=== PATIENT | female | born 1950 | race Caucasian/White ===

== ENCOUNTER 2017-07-05 10:13 | Emergency (ER) | payer MEDICARE, OTHER ==
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
--- NOTE | 2017-07-05 11:44 | RAD REPORT ---
EXAM DESCRIPTION: RAD - Hand Right 3 View - 07/05/2017 10:51 am CLINICAL HISTORY: Hand pain following trauma, uncertain mechanism of injury COMPARISON: March 25 FINDINGS: No fracture is identified. There is no dislocation or periosteal reaction noted. Patient has mild degenerative changes to the IP joints of the fourth and fifth digit with mild joint space na rrowing degenerative change at the first and third MCP joints. The first carpal- metacarpal joint jake ws mild degenerative change and there is minimal narrowing of the radiocarpal joint space. No erosive or destructive bone process. No air or foreign body. Hand is not substantially different from the [facility] study. IMPRESSION: Degenerative joint changes are present as detailed. No fracture or acute bone finding id entifiable.
== END 2017-07-05 11:52 | disposition home or self-care (01) ==
LOC: ER 10:13
DX: S62.622A Displaced fracture of middle phalanx of right middle finger, initial encounter for closed fracture (principal); W22.8XXA Striking against or struck by other objects, initial encounter; Y93.89 Activity, other specified; Y92.009 Unspecified place in unspecified non-institutional (private) residence as the place of occurrence of the external cause; K21.9 Gastro-esophageal reflux disease without esophagitis
CPT/HCPCS: 99283

== ENCOUNTER 2017-08-12 07:38 | Day surgery (SDC) | payer MEDICARE, OTHER ==
--- NOTE | 2017-08-10 10:58 | RAD REPORT ---
EXAM DESCRIPTION: Kaci Aquino (2 Views)08/10/2017 9:31 am CLINICAL HISTORY: Preop for wrist surgery COMPARISON: January 2017 FINDINGS: The lungs appear clear of acute infiltrate. The heart is normal size IMPRESSION: No acute abnormalities displayed
[2017-08-10 12:27] LABS: Urine Appearance CLEAR; Urine Bilirubin NEGATIVE (NEG); Urine Blood NEGATIVE (NEG); Urine Color YELLOW; Urine Glucose NEGATIVE (NEG); Urine Protein NEGATIVE (NEG); Urine Specific Gravity 1.025 (1.005-1.030); Urine Urobilinogen 0.2 mg/dL (0.2-1.0); Urine pH 6.5 (5.0-7.0)
[2017-08-10 12:30] LABS: Absolute Lymphocytes (CBC) 1.4 K/uL (0.7-4.9); Absolute Monocytes 0.5 K/uL (0.1-1.3); Absolute Neutrophil 3.3 K/uL (1.8-8.0); Basophils % 0.7 % (0-1.3); Eosinophils % 1.5 % (0-4.4); Hematocrit 38.4 % (36.0-45.0); Lymphocytes % 26.6 % (15.3-44.8); MCH 30.9 pg (27.0-35.0); MCV 94.6 fL (80-100); Monocytes % 8.9 % (3.3-12.3); RBC Red Blood Cell Count 4.05 M/uL (3.86-4.86)
[2017-08-10 12:31] LABS: Urine Microscopic Reflex ORDER UMIC
[2017-08-10 13:00] LABS: Urine Bacteria <20 /HPF (<20); Urine Culture Reflex Order NOT NEEDED; Urine RBC <5 /HPF (NONE SEEN)
[2017-08-10 13:01] LABS: Urine Mucus SLIGHT /HPF (NONE SEEN)
--- NOTE | 2017-08-10 14:41 | EKG ---
Test Date: 2017-08-10 Test Time: 09:11:48 President & Ceo: PAMELA MEASUREMENT RESULTS: Intervals: Rate: 53 GA: 132 QRSD: 78 QT: 466 QTc: 437 [place]: P: 47 GA: 132 QRS: 22 T: 27 INTERPRETIVE STATEMENTS: Sinus bradycardia Otherwise normal ECG No previous ECG available for comparison Electronically Signed On 08-10-17 14:39:59 CDT by Bart Mensah
[2017-08-12] MEDS ORDERED: CEFAZOLIN/SWI 1gm 1 GM/10 ML SYR ONE (08:06)
[2017-08-12] MEDS ORDERED: Ringers Lactate 1,000 ML IV ONE (08:06)
[2017-08-12] MEDS ORDERED: MIDAZOLAM HCL 2 MG/2 ML INJ ONE (08:56)
[2017-08-12] MEDS ORDERED: PROPOFOL 200 MG/20 ML VIAL IV ONE (08:56)
[2017-08-12] MEDS ORDERED: FENTANYL CITR 100 MCG/2 ML ONE (08:56)
[2017-08-12] MEDS ORDERED: LIDOCAINE 1% MPF 5 ML VIAL ONE (08:56)
[2017-08-12] MEDS ORDERED: KETOROLAC 30 MG/ML INJ ONE (10:01)
[2017-08-12] MEDS ORDERED: MEPERIDINE HCL 25 MG/0.5 ML ONE ×2 (10:35→10:42)
[2017-08-12] MEDS ORDERED: ONDANSETRON 4 MG/2 ML VIAL ONE (10:37)
[2017-08-12] MEDS ORDERED: HYDROCODONE/APAP 5/325 MG TAB ONE (11:11)
--- NOTE | 2017-08-12 20:59 | OP ---
Surgeon: Wiliam Berry MD [employer] Assistant: Semaj. Preoperative Diagnosis: Right carpal tunnel syndrome. Postoperative Diagnosis: Right carpal tunnel syndrome. Procedure Performed: Right carpal tunnel release. Anesthesia: General. Procedure In Detail: After satisfactory induction of general anesthesia, the right arm was prepped w ith Betadine scrub, Betadine paint, dry sterile drapes placed in the usual manner. The arm was eleva renée, exsanguinated with an Esmarch, tourniquet inflated to 250 mmHg. Hand was placed on a [place] ta ble. A felt-tip marking pen used to outline a palmar incision. The scalpel was used to excise the s kin. Dissection proceeded down. The transverse carpal ligament was divided with a scalpel. The Ant ebrachial fascia was opened with tenotomy scissors. The floor was inspected and no masses. The alexa r branch of the median nerve was identified distally and was intact. Tourniquet was released. Elect rocautery used for hemostasis. Wound closed with 4-0 Prolene vertical mattress and half buried mattr ess simple sutures. Dressed with Xeroform, 2-inch Lily, Kerlix, splint holding the wrist in 10 degr ees of dorsiflexion. The patient tolerated the procedure well and returned to recovery. RAYA/AMY Voice ID: [id number] Report ID: [id number]
== END 2017-08-12 12:05 | disposition home or self-care (01) ==
LOC: OR 07:38
PROVIDERS: ATTEND Specialist
PROC: 01N50ZZ Release Median Nerve, Open Approach (ICD-10-PCS; principal; 2017-08-12 09:00)
DX: G56.01 Carpal tunnel syndrome, right upper limb (principal)
CPT/HCPCS: 36415; 64721; 71046; 85025; 93005; J0690; J2175 ×2; J2250; J2405; J3010; 81003; 81015

== ENCOUNTER 2017-10-03 11:59 | Observation (INO) | payer MEDICARE, OTHER ==
[2017-10-03] MEDS ORDERED: NA CHLORIDE 0.9% 1,000 ML ONE (13:04)
[2017-10-03] MEDS ORDERED: ACETAMINOPHEN 325 MG TABLET ONE (13:04)
[2017-10-03] MEDS ORDERED: CEFTRIAXONE/SWI 1gm 1 GM/10 ML SYR ONE (13:05)
[2017-10-03 13:13] LABS: Absolute Lymphocytes (CBC) 0.4 K/uL (0.7-4.9); Absolute Monocytes 0.3 K/uL (0.1-1.3); Absolute Neutrophil 8.5 K/uL (1.8-8.0); Basophils % 0.3 % (0-1.3); Hematocrit 35.3 % (36.0-45.0); Lymphocytes % 4.1 % (15.3-44.8); MCH 32.5 pg (27.0-35.0); MCV 94.9 fL (80-100); MPV 9.7 fL (7.6-11.3); Monocytes % 3.6 % (3.3-12.3); RBC Red Blood Cell Count 3.72 M/uL (3.86-4.86)
[2017-10-03 13:16] LABS: Protime INR 1.23
[2017-10-03 13:27] LABS: Albumin 3.3 g/dL (3.4-5.0); Bilirubin Direct 0.6 mg/dL (0-0.2); Bilirubin Total 1.6 mg/dL (0.2-1.0); CKMB Creatine Kinase MB 1.4 ng/mL (0.3-3.6); Magnesium 1.8 mg/dL (1.8-2.4); Potassium 3.4 mmol/L (3.5-5.1); Protein, Total 7.2 g/dL (6.4-8.2)
[2017-10-03 14:05] LABS: Urine Blood 1+ (NEG); Urine Glucose NEGATIVE (NEG); Urine Protein 3+ (NEG); Urine Specific Gravity 1.015 (1.005-1.030)
[2017-10-03 14:09] LABS: Blood Morphology Comment NOT SEEN (NOT SEEN); Platelet Estimate ADEQ; Urine White Blood Cell Casts OK
--- NOTE | 2017-10-03 14:54 | EDPHYS ---
Physician Documentation [facility] Name: Annie Tong Age: 66 yrs Sex: Female : 1950 Arrival Date: 10/03/2017 Time: 12:03 Bed 6 Private MD: None, None ED Physician Ji Storm HPI: 10/03 12:58 This 66 yrs old Female presents to ER via Wheelchair with complaints of sloane Chills. 12:58 The patient presents with urinary symptoms, dysuria, frequency, urgency. Onset: The sloane symptoms/episode began/occurred 2 day(s) ago. Modifying factors: The symptoms are alleviated by nothing, the symptoms are aggravated by nothing. Associated signs and symptoms: Pertinent positives: dysuria, fever. Severity of symptoms: At their worst the symptoms were moderate, in the emergency department the symptoms are unchanged. The patient or guardian reports cough, flu symptoms, low-grade fever, myalgias. fever and malaise today. Historical: - Allergies: 12:11 No Known Allergies; aj1 - Home Meds: 12:11 Zantac Oral [Active]; aj1 - PMHx: 12:11 GERD; aj1 - PSHx: 12:11 hand surgery; aj1 - Immunization history:: Flu vaccine is not up to date. - Social history:: Smoking status: Patient/guardian denies using tobacco. - Ebola Screening: : Patient denies travel to an Ebola-affected area in the 21 days before illness onset. - Family history:: not pertinent. ROS: 12:58 Constitutional: Negative for fever, chills, and weight loss, Eyes: Negative for injury, sloane pain, redness, and discharge, ENT: Negative for injury, pain, and discharge, Neck: Negative for injury, pain, and swelling, Cardiovascular: Negative for chest pain, palpitations, and edema, Abdomen/GI: Negative for abdominal pain, nausea, vomiting, diarrhea, and constipation, Back: Negative for injury and pain, MS/Extremity: Negative for injury and deformity, Skin: Negative for injury, rash, and discoloration, Neuro: Negative for headache, weakness, numbness, tingling, and seizure, Psych: Negative for depression, anxiety, suicide ideation, homicidal ideation, and hallucinations, Allergy/Immunology: Negative for hives, rash, and allergies, Endocrine: Negative for neck swelling, polydipsia, polyuria, polyphagia, and marked weight changes, Hematologic/Lymphatic: Negative for swollen nodes, abnormal bleeding, and unusual bruising. 12:58 Cardiovascular: Positive for 12:58 Respiratory: Positive for cough, wheezing, expiratory. 12:58 : Positive for urinary symptoms, urinary frequency. Exam: 13:01 Head/Face: Normocephalic, atraumatic. Eyes: Pupils equal round and reactive to light, sloane extra-ocular motions intact. Lids and lashes normal. Conjunctiva and sclera are non-icteric and not injected. Cornea within normal limits. Periorbital areas with no swelling, redness, or edema. ENT: Nares patent. No nasal discharge, no septal abnormalities noted. Tympanic membranes are normal and external auditory canals are clear. Oropharynx with no redness, swelling, or masses, exudates, or evidence of obstruction, uvula midline. Mucous membranes moist. Neck: Trachea midline, no thyromegaly or masses palpated, and no cervical lymphadenopathy. Supple, full range of motion without nuchal rigidity, or vertebral point tenderness. No Meningismus. Chest/axilla: Normal chest wall appearance and motion. Nontender with no deformity. No lesions are appreciated. Cardiovascular: Regular rate and rhythm with a normal S1 and S2. No gallops, murmurs, or rubs. Normal PMI, no JVD. No pulse deficits. Respiratory: Lungs have equal breath sounds bilaterally, clear to auscultation and percussion. No rales, rhonchi or wheezes noted. No increased work of breathing, no retractions or nasal flaring. Abdomen/GI: Soft, non-tender, with normal bowel sounds. No distension or tympany. No guarding or rebound. No evidence of tenderness throughout. Back: No spinal tenderness. No costovertebral tenderness. Full range of motion. Skin: Warm, dry with normal turgor. Normal color with no rashes, no lesions, and no evidence of cellulitis. MS/ Extremity: Pulses equal, no cyanosis. Neurovascular intact. Full, normal range of motion. Neuro: Awake and alert, GCS 15, oriented to person, place, time, and situation. Cranial nerves II-XII grossly intact. Motor strength 5/5 in all extremities. Sensory grossly intact. Cerebellar exam normal. Normal gait. Psych: Awake, alert, with orientation to person, place and time. Behavior, mood, and affect are within normal limits. 13:01 Constitutional: The patient appears febrile. 13:01 Abdomen/GI: Inspection: abdomen appears normal, Bowel sounds: normal, Palpation: mild abdominal tenderness, in the suprapubic area, Liver: no appreciated palpable abnormalities, Hernia: not appreciated. Vital Signs: 12:11 BP 108 / 82; Pulse 110; Resp 28; Temp 100.3(O); Pulse Ox 97% on R/A; Weight 86.18 kg aj1 (R); Height 5 ft. 7 in. (170.18 cm) (R); Pain 0/10; 13:18 BP 93 / 62; Pulse 87; Resp 22 S; Temp 100.0(O); Pulse Ox 97% on R/A; aa5 13:55 BP 113 / 67; Pulse 82; Resp 22 S; Pulse Ox 95% on R/A; aa5 14:42 BP 104 / 56; Pulse 72; Resp 20 S; Temp 100.4(O); Pulse Ox 92% on R/A; Pain 0/10; aa5 14:42 Pulse Ox 96% on 2 lpm NC; aa5 15:05 Pulse Ox 100% on Nebulizer Mask; aa5 15:24 BP 99 / 59; Pulse 85; Resp 22 S; Pulse Ox 95% on R/A; aa5 15:33 Temp 98.8(O); Pulse Ox 95% on R/A; aa5 15:45 Pulse Ox 93% on R/A; aa5 15:45 Pulse Ox 99% on 2 lpm NC; aa5 16:15 BP 99 / 54; Pulse 85; Resp 20 S; Pulse Ox 99% on 2 lpm NC; Pain 0/10; aa5 12:11 Body Mass Index 29.76 (86.18 kg, 170.18 cm) [facility] MDM: 12:[address] [facility] 13:02 Data reviewed: vital signs, nurses notes, lab test result(s), EKG, radiologic studies. [facility] 10/03 12:57 Order name: Basic Metabolic Panel [facility] 10/03 12:57 Order name: CBC with Diff; Complete Time: 14:47 [facility] 10/03 12:57 Order name: Ckmb; Complete Time: 14:47 [facility] 10/03 12:57 Order name: CPK; Complete Time: 14:47 [facility] 10/03 12:57 Order name: LFT's; Complete Time: 14:47 [facility] 10/03 12:57 Order name: Magnesium; Complete Time: 14:47 [facility] 10/03 12:57 Order name: NT PRO-BNP; Complete Time: 14:47 [facility] 10/03 12:57 Order name: PT-INR; Complete Time: 14:47 [facility] 10/03 12:57 Order name: Ptt, Activated; Complete Time: 14:47 [facility] 10/03 12:57 Order name: Troponin (emerg Dept Use Only); Complete Time: 14:47 [facility] 10/03 12:57 Order name: Urine Culture [facility] 10/03 12:57 Order name: Lipase; Complete Time: 14:47 [facility] 10/03 12:57 Order name: Blood Culture Adult (2) [facility] 10/03 12:57 Order name: Influenza Screen (a \T\ B); Complete Time: 14:47 [facility] 10/03 12:57 Order name: XRAY Chest (1 view) [facility] 10/03 12:57 Order name: EKG; Complete Time: 12:58 [facility] 10/03 12:57 Order name: Cardiac monitoring; Complete Time: 13:06 [facility] 10/03 12:58 Order name: Basic Metabolic Panel; Complete Time: 14:47 EDMS 10/03 13:20 Order name: CBC Smear Scan; Complete Time: 14:47 EDMS 10/03 13:48 Order name: Urine Dipstick--Ancillary (enter results); Complete Time: 14:47 10/03 15:42 Order name: Diet Regular; Complete Time: 15:42 aa5 10/03 12:57 Order name: EKG - Nurse/Tech; Complete Time: 13:17 [facility] 10/03 12:57 Order name: IV Saline Lock; Complete Time: 13:06 [facility] 10/03 12:57 Order name: Labs collected and sent; Complete Time: 13:06 [facility] 10/03 12:57 Order name: O2 Per Protocol; Complete Time: 13:06 [facility] 10/03 12:57 Order name: O2 Sat Monitoring; Complete Time: 13:06 [facility] 10/03 12:57 Order name: Urine Dipstick-Ancillary (obtain specimen); Complete Time: 13:44 [facility] Administered Medications: 13:06 Drug: NS 0.9% 1000 ml Route: IV; Rate: 1 bolus; Site: right antecubital; jl7 13:06 Drug: Tylenol 650 mg Route: PO; jl7 14:00 Follow up: Response: No adverse reaction aa5 14:21 Drug: Rocephin - (cefTRIAXone) 1 grams Route: IVPB; Infused Over: 30 mins; Site: right jl7 antecubital; 14:40 Follow up: Response: No adverse reaction aa5 15:00 Drug: Potassium Effervescent Tablet 25 mEq Route: PO; aa5 15:32 Follow up: Response: No adverse reaction aa5 15:00 Drug: Motrin 600 mg Route: PO; aa5 15:32 Follow up: Response: No adverse reaction; Temperature is decreased aa5 15:00 Drug: Albuterol 2.5 mg Route: Inhalation; aa5 15:00 Drug: AtroVENT Aerosol 0.5 mg Route: Inhalation; aa5 15:10 Drug: NS 0.9% with KCl 20 mEq/L 1000 ml Route: IV; Rate: 125 ml/hr; Site: right aa5 antecubital; 16:20 Follow up: IV Status: Infusion continued upon admission aa5 15:10 Drug: Zithromax 500 mg Route: IVPB; Infused Over: 1 hrs; Site: right antecubital; aa5 15:32 Follow up: Response: No adverse reaction aa5 16:10 Follow up: Response: No adverse reaction; IV Status: Completed infusion aa5 Disposition: 10/03/17 14:53 Hospitalization ordered by Shannan Pisano for Inpatient Admission. Preliminary diagnosis are Fever, unspecified, Pneumonia due to other specified bacteria, Cystitis, Weakness, Hypokalemia. - Bed requested for Telemetry/MedSurg (Inpatient). - Status is Inpatient Admission. aa5 - Condition is Fair. - Problem is new. - Symptoms have improved. UTI on Admission? Yes Signatures: Dispatcher [employer] EDMS Loren Man Angela, RN RN aj1 Ji Storm MD MD cha Calderon, Audri, RN RN aa5 Sami Werner RN RN jl7 Corrections: (The following items were deleted from the chart) 15:56 14:53 Hospitalization Ordered by Shannan Pisano MD for Inpatient Admission. bd Preliminary diagnosis is Fever, unspecified; Pneumonia due to other specified bacteria; Cystitis; Weakness; Hypokalemia. Bed requested for Telemetry/MedSurg (Inpatient). Status is Inpatient Admission. Condition is Fair. Problem is new. Symptoms have improved. UTI on Admission? Yes. [facility] 16:37 15:56 10/03/2017 14:53 Hospitalization Ordered by Shannan Pisano MD for Inpatient aa5 Admission. Preliminary diagnosis is Fever, unspecified; Pneumonia due to other specified bacteria; Cystitis; Weakness; Hypokalemia. Bed requested for Telemetry/MedSurg (Inpatient). Status is Inpatient Admission. Condition is Fair. Problem is new. Symptoms have improved. UTI on Admission? Yes. bd
--- NOTE | 2017-10-03 14:54 | ER ---
Nurse's Notes [facility] Name: Annie Tong Age: 66 yrs Sex: Female : 1950 Arrival Date: 10/03/2017 Time: 12:03 Bed 6 Private MD: None, None Diagnosis: Fever, unspecified;Pneumonia due to other specified bacteria;Cystitis;Weakness;Hypokalemia Presentation: 10/03 12:04 Presenting complaint: Patient states: "I started having chills all of the sudden at aj1 0930 this morning. I just can't get warm. I thought it might be the infection because I had my tooth pulled on the ." Reports fever, dry mouth, chills, vomiting. Denies pain. Transition of care: patient was not received from another setting of care. Onset of symptoms was October 03, 2017 at 09:30. Risk Assessment: Do you want to hurt yourself or someone else? Patient reports no desire to harm self or others. Initial Sepsis Screen: Does the patient meet any 2 criteria? HR > 90 bpm. Does the patient have a suspected source of infection? Yes: Other: recent tooth extraction. Care prior to arrival: None. 12:04 Method Of Arrival: Wheelchair aj1 12:04 Acuity: SERENA 3 aj1 Triage Assessment: 12:11 General: Appears in no apparent distress. uncomfortable, Behavior is cooperative, aj1 anxious, restless. General: Reports chills for 0-12 hours, fever for 0-12 hours. Pain: Denies pain. Neuro: Level of Consciousness is awake, alert, obeys commands, Speech is normal. Cardiovascular: Patient's skin is warm and dry. Respiratory: Reports shortness of breath Airway is patent Respiratory effort is even, unlabored, Respiratory pattern is regular, symmetrical. GI: Pt is actively vomiting bile, Reports nausea, vomiting. : No signs and/or symptoms were reported regarding the genitourinary system. Derm: No signs and/or symptoms reported regarding the dermatologic system. Skin is pink, warm \\T\\ dry. normal. Musculoskeletal: No signs and/or symptoms reported regarding the musculoskeletal system. Circulation, motion, and sensation intact. Historical: - Allergies: 12:11 No Known Allergies; aj1 - Home Meds: 12:11 Zantac Oral [Active]; aj1 - PMHx: 12:11 GERD; aj1 - PSHx: 12:11 hand surgery; aj1 - Immunization history:: Flu vaccine is not up to date. - Social history:: Smoking status: Patient/guardian denies using tobacco. - Ebola Screening: : Patient denies travel to an Ebola-affected area in the 21 days before illness onset. - Family history:: not pertinent. Screenin:50 Abuse screen: Denies threats or abuse. Nutritional screening: No deficits noted. aa5 Tuberculosis screening: No symptoms or risk factors identified. Fall Risk None identified. Assessment: 12:50 General: Appears comfortable, Behavior is calm, cooperative. Pain: Denies pain. Neuro: aa5 Level of Consciousness is awake, alert, obeys commands, Oriented to person, place, time, situation. Cardiovascular: Heart tones S1 S2 present Rhythm is regular. Respiratory: Airway is patent Respiratory effort is even, unlabored, Respiratory pattern is regular, symmetrical, tachypnea mild wheezes auscultated bilaterally. 12:50 GI: Abdomen is round non-distended, Bowel sounds present X 4 quads. Abd is soft and non aa5 tender X 4 quads. Reports nausea, Patient currently denies diarrhea, vomiting. : Reports urgency, urinary frequency, cloudy urine x 1-2 weeks ago Denies burning with urination. EENT: Reports "the dentis pulled all my bottom teeth out about 2 or 3 weeks ago". No signs of infection noted to bottom gums. Derm: Skin is pink, warm \\T\\ dry. Musculoskeletal: Range of motion: intact in all extremities. 13:55 Reassessment: Patient and/or family updated on plan of care and expected duration. Pain aa5 level reassessed. Patient is alert, oriented x 3, equal unlabored respirations, skin warm/dry/pink. Patient states feeling better. 14:42 Reassessment: Patient and/or family updated on plan of care and expected duration. Pain aa5 level reassessed. Patient is alert, oriented x 3, equal unlabored respirations, skin warm/dry/pink. Patient denies pain at this time. Awaiting chest x-ray results . 16:00 Reassessment: Patient and/or family updated on plan of care and expected duration. Pain aa5 level reassessed. Patient is alert, oriented x 3, equal unlabored respirations, skin warm/dry/pink. Patient denies pain at this time. Vital Signs: 12:11 BP 108 / 82; Pulse 110; Resp 28; Temp 100.3(O); Pulse Ox 97% on R/A; Weight 86.18 kg aj1 (R); Height 5 ft. 7 in. (170.18 cm) (R); Pain 0/10; 13:18 BP 93 / 62; Pulse 87; Resp 22 S; Temp 100.0(O); Pulse Ox 97% on R/A; aa5 13:55 BP 113 / 67; Pulse 82; Resp 22 S; Pulse Ox 95% on R/A; aa5 14:42 BP 104 / 56; Pulse 72; Resp 20 S; Temp 100.4(O); Pulse Ox 92% on R/A; Pain 0/10; aa5 14:42 Pulse Ox 96% on 2 lpm NC; aa5 15:05 Pulse Ox 100% on Nebulizer Mask; aa5 15:24 BP 99 / 59; Pulse 85; Resp 22 S; Pulse Ox 95% on R/A; aa5 15:33 Temp 98.8(O); Pulse Ox 95% on R/A; aa5 15:45 Pulse Ox 93% on R/A; aa5 15:45 Pulse Ox 99% on 2 lpm NC; aa5 16:15 BP 99 / 54; Pulse 85; Resp 20 S; Pulse Ox 99% on 2 lpm NC; Pain 0/10; aa5 12:11 Body Mass Index 29.76 (86.18 kg, 170.18 cm) aj ED Course: 12:03 Patient arrived in ED. mr 12:03 None, None is Private Physician. mr 12:09 Triage completed. aj1 12:11 Arm band placed on Patient placed in waiting room, Patient notified of wait time. aj1 12:44 Negra Donaldson, DASHA is Primary Nurse. aa5 12:44 Ji Storm MD is Attending Physician. [facility] 12:50 Patient has correct armband on for positive identification. Placed in gown. Bed in low aa5 position. Call light in reach. Side rails up X2. 13:00 Inserted saline lock: 18 gauge in right antecubital area, using aseptic technique. aa5 Blood collected. 13:00 Initial lab(s) drawn, by me, sent to lab. First set of blood cultures drawn by me. aa5 13:10 Flu and/or RSV swab sent to lab. aa5 13:12 No provider procedures requiring assistance completed. Second set of blood cultures aa5 drawn by me. 14:00 X-ray completed. Portable x-ray completed in exam room. Patient tolerated procedure la2 well. 14:06 XRAY Chest (1 view) In Process Unspecified. EDMS 14:51 Shannan Pisano MD is Hospitalizing Provider. [facility] 16:20 Patient admitted, IV remains in place. aa5 Administered Medications: 13:06 Drug: NS 0.9% 1000 ml Route: IV; Rate: 1 bolus; Site: right antecubital; jl7 13:06 Drug: Tylenol 650 mg Route: PO; jl7 14:00 Follow up: Response: No adverse reaction aa5 14:21 Drug: Rocephin - (cefTRIAXone) 1 grams Route: IVPB; Infused Over: 30 mins; Site: right jl7 antecubital; 14:40 Follow up: Response: No adverse reaction aa5 15:00 Drug: Potassium Effervescent Tablet 25 mEq Route: PO; aa5 15:32 Follow up: Response: No adverse reaction aa5 15:00 Drug: Motrin 600 mg Route: PO; aa5 15:32 Follow up: Response: No adverse reaction; Temperature is decreased aa5 15:00 Drug: Albuterol 2.5 mg Route: Inhalation; aa5 15:00 Drug: AtroVENT Aerosol 0.5 mg Route: Inhalation; aa5 15:10 Drug: NS 0.9% with KCl 20 mEq/L 1000 ml Route: IV; Rate: 125 ml/hr; Site: right aa5 antecubital; 16:20 Follow up: IV Status: Infusion continued upon admission aa5 15:10 Drug: Zithromax 500 mg Route: IVPB; Infused Over: 1 hrs; Site: right antecubital; aa5 15:32 Follow up: Response: No adverse reaction aa5 16:10 Follow up: Response: No adverse reaction; IV Status: Completed infusion aa5 Outcome: 14:53 Decision to Hospitalize by Provider. [place] 16:20 Admitted to [facility] accompanied by tech, via wheelchair, with oxygen, with chart, Report aa5 called to Esequiel Mendoza Jr, RN 16:20 Condition: stable 16:20 Instructed on the need for admit, Demonstrated understanding of instructions. 16:37 Patient left the ED. aa5 Signatures: Dispatcher [employer] EDMS Marian Post, RN RN aj1 Ji Storm MD MD cha Rivera, Maria mr Donaldson, DASHA Omer RN aa5 Sami Werner RN RN jl7 Christine Montalvo Corrections: (The following items were deleted from the chart) 13:20 13:18 Pulse 87bpm; Resp 22bpm; Spontaneous; Pulse Ox 97% RA; Temp 100.0F Oral; aa5 aa5 13:43 13:23 General: Appears comfortable, Behavior is calm, cooperative, aa5 aa5 :46 13:23 Pain: Denies pain. aa5 aa5 13:46 13:23 Neuro: Level of Consciousness is awake, alert, obeys commands, Oriented to aa5 person, place, time, situation, aa5 13:46 13:23 Cardiovascular: Heart tones S1 S2 present Rhythm is regular aa5 aa5 13:46 13:23 Respiratory: Airway is patent Respiratory effort is even, unlabored, Respiratory aa5 pattern is regular, symmetrical, aa5 :46 13:23 General: Appears comfortable, Behavior is calm, cooperative, aa5 aa5 15:25 15:24 BP 99 / 59; Pulse 85bpm; Resp 22bpm; Spontaneous; Pulse Ox 93% RA; aa5 aa5 15:34 15:33 Temp 98.8F Oral; aa5 aa5
[2017-10-03] MEDS ORDERED: IPRATROPIUM BROM 0.5MG/2.5ML ONE (15:00)
[2017-10-03] MEDS ORDERED: IBUPROFEN 200 MG TAB PO ONE (15:00)
[2017-10-03] MEDS ORDERED: POTASSIUM 25 MEQ EFFERV TAB ONE (15:00)
[2017-10-03] MEDS ORDERED: ALBUTEROL 2.5 MG/3 ML NEB SOL ONE (15:00)
[2017-10-03] MEDS ORDERED: IBUPROFEN 400 MG TAB ONE (15:00)
[2017-10-03] MEDS ORDERED: NS KCL 20MEQ 1,000 ML IV ONE (15:01)
[2017-10-03] MEDS ORDERED: AZITHROMYCIN 500 MG/250 ML BAG ONE (15:01)
--- NOTE | 2017-10-03 15:38 | RAD REPORT ---
EXAM DESCRIPTION: Kaci Single View10/03/2017 2:08 pm CLINICAL HISTORY: cough COMPARISON: July 2017 FINDINGS: The lungs appear clear of acute infiltrate. The heart is normal size IMPRESSION: No acute abnormalities displayed
--- NOTE | 2017-10-03 15:56 | P.HP ---
Certification for Inpatient Patient admitted to: Observation With expected LOS: <2 Midnights Patient will require the following post-hospital care: None Practitioner: I am a practitioner with admitting privileges, knowledge of patient current condition, hospital course, and medical plan of care. Services: Services provided to patient in accordance with Admission requirements found in Title 42 Section 412.3 of the Code of Federal Regulations Patient History Date of Service: 10/03/17 Primary Care Provider: OOT Reason for admission: Fever, chillis and weakness History of Present Illness: This is a 66-year-old female with significant past medical history of reflux who presented to the ED complaining of having some fever chills that has been going on for past several days. Patient stated that she has been noticing that she had a low-grade fever at the house and thus decided to come to the ER. Patient also stated that she has been having some increased frequency for urination and painful urination for past couple of days and thus decided to come to the ER for further workup. No other complaints to offer at this time. Patient denies having any chest pain nausea vomiting or any other associated symptoms at this time. In the ER patient was found to have low-grade fever 100.4 and UA which was positive for leuk esterase and thus was admitted to the hospital for UTI. Patient was given fluids in the ER however patient's continued to have low- grade fever and thus it was decided the patient will be admitted to the hospital for observation for 24 hr. Allergies No Known Allergies Allergy (Verified 08/10/17 08:59) Home medications list reviewed: Yes Home Medications: Ranitidine [Zantac] 150 mg PO DAILY 08/10/17 - Past Medical/Surgical History Has patient received pneumonia vaccine in the past: No Diabetic: No -: GERD Past Surgical History: Reviewed- Non-Contributory - Family History Family History: Reviewed- Non-Contributory - Family History Sister History Unknown: Yes -: Cancer Notes: Bone cancer Father History Unknown: Yes -: Heart disease Mother -: Heart disease - Social History Smoking Status: Never smoker Smoking therapy provided: No Patient receptive to therapy: No Alcohol use: No CD- Drugs: No Caffeine use: No Place of Residence: Home Review of Systems General: As per HPI Physical Examination - Physical Exam General: Alert, In no apparent distress HEENT: Atraumatic, PERRLA, Mucous membr. moist/pink, EOMI, Sclerae nonicteric Neck: Supple, 2+ carotid pulse no bruit, No LAD, Without JVD or thyroid abnormality Respiratory: Clear to auscultation bilaterally, Normal air movement Cardiovascular: Regular rate/rhythm, Normal S1 S2 Gastrointestinal: Normal bowel sounds, No tenderness Musculoskeletal: No tenderness Integumentary: No rashes Neurological: Normal speech, Normal strength at 5/5 x4 extr, Normal tone, Normal affect Lymphatics: No axilla or inguinal lymphadenopathy - Studies Laboratory Data (last 24 hrs) 10/03/17 13:00: PT 14.6 H, INR 1.23, APTT 25.8 10/03/17 13:00: WBC 9.2, Hgb 12.1, Hct 35.3 L, Plt Count 234 10/03/17 13:00: Sodium 142, Potassium 3.4 L, BUN 11, Creatinine 0.70, Glucose 130 H, Magnesium 1.8, Total Bilirubin 1.6 H, AST 21, ALT 25, Alkaline Phosphatase 108, Lipase 51 L Microbiology Data (last 24 hrs): 10/03/17 13:10 Nasopharnyx Influenza Type A Antigen Screen - Final 10/03/17 13:10 Nasopharnyx Influenza Type B Antigen Screen - Final Assessment and Plan - Problems (Diagnosis) (1) UTI (urinary tract infection) Current Visit: Yes Status: Acute Plan: ua + for LE. Culture pending. Pt with dyuria, burning during urination and increase frequency -IV rocephin -Urine culture pending -IV fluids Qualifiers: Urinary tract infection type: acute cystitis Hematuria presence: without hematuria Qualified Code(s): N30.00 - Acute cystitis without hematuria (2) GERD (gastroesophageal reflux disease) Current Visit: Yes Status: Chronic Plan: Restart Home medication Qualifiers: Esophagitis presence: without esophagitis Qualified Code(s): K21.9 - Gastro -esophageal reflux disease without esophagitis - Advance Directives Does patient have a Living Will: No Does patient have a Durable POA for Healthcare: No
[2017-10-03] MEDS ORDERED: ACETAMINOPHEN 500 MG TAB PO PRN (17:14)
[2017-10-03] MEDS: NA CHLORIDE 0.9% 1,000 ML IV SCH (17:14)
[2017-10-03] MEDS ORDERED: ONDANSETRON 4 MG/2 ML VIAL IV PRN (17:14)
[2017-10-03] MEDS ORDERED: MAGNESIUM SULFATE 1 gm IVPB 1 GM/100 ML BAG IV ONE (18:00)
[2017-10-03] MEDS ORDERED: PNEUMOCOCCAL VACCINE 0.5 ML IMVAC ONE (19:00)
[2017-10-04] MEDS: NA CHLORIDE 0.9% 1,000 ML IV SCH (03:14)
[2017-10-04 05:51] LABS: Absolute Monocytes 0.8 K/uL (0.1-1.3); Absolute Neutrophil 7.3 K/uL (1.8-8.0); Basophils % 0.4 % (0-1.3); Eosinophils % 0.3 % (0-4.4); Hematocrit 30.4 % (36.0-45.0); Lymphocytes % 10.9 % (15.3-44.8); MCH 33.3 pg (27.0-35.0); MCV 96.4 fL (80-100); MPV 9.6 fL (7.6-11.3); Monocytes % 8.3 % (3.3-12.3); RBC Red Blood Cell Count 3.15 M/uL (3.86-4.86)
[2017-10-04 06:08] LABS: ALT/SGPT 24 U/L (12-78); AST/SGOT 15 U/L (15-37); Albumin 2.6 g/dL (3.4-5.0); Alkaline Phosphatase 88 U/L (45-117); BUN Blood Urea Nitrogen 8 mg/dL (7-18); Bicarbonate 29 mmol/L (21-32); Bilirubin Total 0.4 mg/dL (0.2-1.0); Glucose Level 106 mg/dL (74-106); Potassium 3.8 mmol/L (3.5-5.1); Protein, Total 5.9 g/dL (6.4-8.2); Sodium Level 146 mmol/L (136-145)
[2017-10-04 06:40] LABS: Magnesium 2.5 mg/dL (1.8-2.4); Phosphorus 2.4 mg/dL (2.5-4.9)
--- NOTE | 2017-10-04 07:34 | EKG ---
Test Date: 2017-10-03 Test Time: 13:22:36 Automotive Salesperson: ANABELL MEASUREMENT RESULTS: Intervals: Rate: 85 IN: 122 QRSD: 72 QT: 394 QTc: 468 [place]: P: 37 IN: 122 QRS: 19 T: 13 INTERPRETIVE STATEMENTS: Normal sinus rhythm Normal ECG Compared to ECG 08/10/2017 09:11:48 Sinus bradycardia no longer present Electronically Signed On 10-04-17 07:33:56 CDT by Joe Earl
[2017-10-04] MEDS ORDERED: POTASSIUM CL SA 10 MEQ TAB PO ONE (09:00)
[2017-10-04] MEDS: RANITIDINE 150 MG TABLET PO SCH (09:17)
[2017-10-04] MEDS: CEFTRIAXONE/SWI 1gm 1 GM/10 ML SYR IV SCH (09:17)
--- NOTE | 2017-10-04 10:36 | P.PN ---
Subjective Date of Service: 10/04/17 Primary Care Provider: SANYA Chief Complaint: Fever, chillis and weakness Subjective: No C/O voiced, Tolerating diet, Improving, Doing well Review of Systems General: As per HPI Physical Examination - Vital Signs Temperature: 97.7 F Blood Pressure: 134/71 Pulse: 76 Respirations: 18 Pulse Ox (%): 98 - Physical Exam General: Alert, In no apparent distress HEENT: Atraumatic, PERRLA, EOMI Neck: Supple, JVD not distended Respiratory: Clear to auscultation bilaterally, Normal air movement Cardiovascular: Regular rate/rhythm, Normal S1 S2 Gastrointestinal: Normal bowel sounds, No tenderness Musculoskeletal: No tenderness Integumentary: No rashes Neurological: Normal speech, Normal tone, Normal affect Lymphatics: No axilla or inguinal lymphadenopathy - Studies Laboratory Data (last 24 hrs) 10/03/17 13:00: PT 14.6 H, INR 1.23, APTT 25.8 10/03/17 13:00: WBC 9.2, Hgb 12.1, Hct 35.3 L, Plt Count 234 10/03/17 13:00: Sodium 142, Potassium 3.4 L, BUN 11, Creatinine 0.70, Glucose 130 H, Magnesium 1.8, Total Bilirubin 1.6 H, AST 21, ALT 25, Alkaline Phosphatase 108, Lipase 51 L Microbiology Data (last 24 hrs): 10/03/17 13:10 Nasopharnyx Influenza Type A Antigen Screen - Final 10/03/17 13:10 Nasopharnyx Influenza Type B Antigen Screen - Final Medications List Reviewed: Yes Assessment & Plan - Problems (Diagnosis) (1) UTI (urinary tract infection) Onset Date: 10/04/17 Current Visit: Yes Status: Acute Plan: ua + for LE. Pt with dyuria, burning during urination and increase frequency -IV rocephin and fluids -Urine culture with 4+ gram negative rods -F.u with Culture Qualifiers: Urinary tract infection type: acute cystitis Hematuria presence: without hematuria Qualified Code(s): N30.00 - Acute cystitis without hematuria (2) GERD (gastroesophageal reflux disease) Onset Date: 10/04/17 Current Visit: Yes Status: Chronic Plan: Restart Home medication Qualifiers: Esophagitis presence: without esophagitis Qualified Code(s): K21.9 - Gastro -esophageal reflux disease without esophagitis Discharge Plan: Home Plan to discharge in: 24 Hours - Code Status/Comfort Care Code Status Assessed: Yes Critical Care: No
[2017-10-04] MEDS ORDERED: POTASS/SODIUM PHOSPHATE 1 PKT POWD.PACK PO ONE (21:00)
[2017-10-05 04:29] LABS: Absolute Lymphocytes (CBC) 0.8 K/uL (0.7-4.9); Absolute Monocytes 0.6 K/uL (0.1-1.3); Absolute Neutrophil 4.7 K/uL (1.8-8.0); Basophils % 0.4 % (0-1.3); Eosinophils % 0.5 % (0-4.4); Hematocrit 31.9 % (36.0-45.0); Lymphocytes % 13.2 % (15.3-44.8); MCH 32.7 pg (27.0-35.0); MCV 96.9 fL (80-100); MPV 9.7 fL (7.6-11.3); Monocytes % 9.8 % (3.3-12.3)
[2017-10-05 04:59] LABS: Albumin 2.6 g/dL (3.4-5.0); Bilirubin Total 0.3 mg/dL (0.2-1.0); Protein, Total 6.3 g/dL (6.4-8.2)
[2017-10-05 07:48] LABS: Magnesium 2.3 mg/dL (1.8-2.4); Phosphorus 2.8 mg/dL (2.5-4.9)
[2017-10-05] MEDS: CEFTRIAXONE/SWI 1gm 1 GM/10 ML SYR IV SCH (10:06)
[2017-10-05] MEDS: RANITIDINE 150 MG TABLET PO SCH (10:06)
--- NOTE | 2017-10-06 09:19 | DS ---
Date of Discharge: 10/05/2017 Admitting Diagnoses: 1.Urinary tract infection. 2.Gastroesophageal reflux disease. Discharge Diagnoses: 1.Urinary tract infection, acute cystitis with hematuria. 2.Gastroesophageal reflux disease without esophagitis. Hospital Course: The patient is a 66-year-old female who comes into the hospital with fever, chills, weakness, found to have UTI, low-grade fever. She was started on IV antibiotics. Her urine culture grew out E. coli. Blood cultures showed no growth. Influenza screen was negative. The patient's c ondition improved. She was able to ambulate without any difficulty and able to tolerate her diet. E lectrolytes including potassium and phosphorus were replaced. Her white count remains stable. The p atient was not septic. The patient was then cleared for discharge after being transitioned to p.o. a ntibiotics for UTI. Followup: The patient to follow up with primary care physician in 2 to 3 days. Return to ER for wor sening condition. Diet: Heart healthy. Activity: As tolerated. Medications: As per medication reconciliation list. Finish up course of antibiotics for UTI. Physical Examination: General: Awake, alert, oriented x3, not in any acute distress. Elderly female, overweight, BMI 29.6 . CV: S1, S2. No murmurs. Respiratory: Moving air well bilaterally. No wheezing. Gastrointestinal: Abdomen is soft, nontender, nondistended. Positive bowel sounds. Extremities: No clubbing, cyanosis, or edema. Neuro: Nonfocal. /AMY Voice ID: [id number] Report ID: [id number]
== END 2017-10-05 11:50 | disposition home or self-care (01) ==
LOC: ER 11:59 → INTOOBSV 14:54 → ERHOLD 14:54 → 4TH 16:28
PROVIDERS: ADMIT Family Medicine; ATTEND Family Medicine
DX: N30.01 Acute cystitis with hematuria (principal); K21.9 Gastro-esophageal reflux disease without esophagitis; B96.20 Unspecified Escherichia coli [E. coli] as the cause of diseases classified elsewhere; E87.6 Hypokalemia
CPT/HCPCS: 36415 ×2; 71045; 80048; 80053 ×2; 80076; 81003; 82550; 82553; 83690; 83735 ×3; 83880; 84100 ×2; 84484; 85025 ×3; 85610; 85730; 87040 ×2; 87077; 87086; 87088; 87186; 87804 ×2; 93005; 96365; 96375; 99285; G0378 ×2; J0456; J0696 ×3; J3475; J7030 ×2; 96361